=== PATIENT | male | born 1970 | race African-American/Black ===

== ENCOUNTER 2019-01-27 20:45 | Emergency (ER) | payer OTHER | END 2019-01-27 21:18 | disposition left against medical advice (07) | LOC: ERS 20:45 | DX: Z53.21 Procedure and treatment not carried out due to patient leaving prior to being seen by health care provider (principal) ==

== ENCOUNTER 2019-01-27 21:07 | Emergency (ER) | payer OTHER ==
[2019-01-27] MEDS ORDERED: Famotidine 20 MG TAB ONE (21:26)
[2019-01-27] MEDS ORDERED: diphenhydrAMINE 50 MG/ML VIAL ONE (21:27)
[2019-01-27] MEDS ORDERED: predniSONE 20 MG TAB ONE (21:27)
[2019-01-27] MEDS ORDERED: diphenhydrAMINE 25 MG CAP ONE (21:28)
[2019-01-27 21:49] LABS: INR-International Normal Ratio 1.1; Prothrombin Time 13.9 SEC (12.0-14.7)
[2019-01-27 21:59] LABS: ALT (SGPT) 35 U/L (8-55); AST (SGOT) 25 U/L (5-34); Albumin 3.7 g/dL (3.5-5.0); Alkaline Phosphatase 47 U/L (40-150); Anion Gap 11 mmol/L (10-20); BUN (Urea Nitrogen) 10 mg/dL (8.9-20.6); Bilirubin, Total 0.4 mg/dL (0.2-1.2); Calc. Creatinine Clearance 0 mL/min (70-130); Calcium 8.7 mg/dL (7.8-10.44); Carbon Dioxide 26 mmol/L (22-29); Chloride 105 mmol/L (98-107); Eosinophils 3 % (0-10); Estimated GFR-MDRD 88; Glucose 144 mg/dL (70-105); Hemoglobin 15.9 g/dL (14.0-18.0); Lymphocytes 21 % (21-51); MDiff Complete? YES; Mean Corpuscular HGB CONC 33.7 g/dL (32.0-36.0); Mean Corpuscular Hemoglobin 30.7 pg (27.0-31.0); Mean Platelet Volume 9.1 fL (7.4-10.4); Monocytes 6 % (0-10); Neutrophil 70 % (42-75); Platelet Count 207 thou/uL (130-400); Potassium 4.1 mmol/L (3.5-5.1); Protein, Total 6.7 g/dL (6.0-8.3); RBC Distribution Width 12.3 % (11.5-14.5); Red Blood Cell (RBC) Count 5.17 mill/uL (4.70-6.10); Sodium 138 mmol/L (136-145); White Blood Cell (WBC) Count 4.8 thou/uL (4.8-10.8)
== END 2019-01-27 22:22 | disposition home or self-care (01) ==
LOC: SCSER 21:07
DX: R21 Rash and other nonspecific skin eruption (principal)
CPT/HCPCS: 36415; 80053; 85025; 85610; 99283; J1200; J7512; Q0163

== ENCOUNTER 2019-01-30 22:56 | Emergency (ER) | payer OTHER ==
[2019-01-30] MEDS ORDERED: Famotidine 20 MG TAB ONE (23:22)
[2019-01-30] MEDS ORDERED: diphenhydrAMINE 25 MG CAP ONE (23:22)
[2019-01-31] MEDS ORDERED: Dexamethasone 10 MG/ML VIAL ONE (00:04)
[2019-01-31] MEDS ORDERED: Ketorolac Tromethamine 30 MG/ML VIAL ONE (00:05)
[2019-01-31 00:17] LABS: Eosinophils 5 % (0-10); Hemoglobin 16.1 g/dL (14.0-18.0); Lymphocytes 33 % (21-51); MDiff Complete? YES; Mean Corpuscular HGB CONC 33.5 g/dL (32.0-36.0); Mean Corpuscular Hemoglobin 30.7 pg (27.0-31.0); Mean Corpuscular Volume 91.6 fL (78.0-98.0); Mean Platelet Volume 8.8 fL (7.4-10.4); Monocytes 7 % (0-10); Neutrophil 52 % (42-75); Platelet Count 251 thou/uL (130-400); RBC Distribution Width 12.7 % (11.5-14.5); Reactive Lymphocytes 3 % (0-10); Red Blood Cell (RBC) Count 5.24 mill/uL (4.70-6.10); White Blood Cell (WBC) Count 6.6 thou/uL (4.8-10.8)
[2019-01-31 00:20] LABS: ALT (SGPT) 50 U/L (8-55); Albumin 3.9 g/dL (3.5-5.0); Alkaline Phosphatase 42 U/L (40-150); Anion Gap 15 mmol/L (10-20); BUN (Urea Nitrogen) 19 mg/dL (8.9-20.6); Bilirubin, Total 0.5 mg/dL (0.2-1.2); Calc. Creatinine Clearance 0 mL/min (70-130); Carbon Dioxide 28 mmol/L (22-29); Chloride 103 mmol/L (98-107); Estimated GFR-MDRD 65; Globulin 3.3 g/dL (2.4-3.5); Glucose 82 mg/dL (70-105); Potassium 4.7 mmol/L (3.5-5.1); Protein, Total 7.2 g/dL (6.0-8.3); Sodium 141 mmol/L (136-145)
[2019-01-31 00:23] LABS: AST (SGOT) 67 U/L (5-34)
== END 2019-01-31 01:27 | disposition home or self-care (01) ==
LOC: SCSER 22:56
DX: T78.40XA Allergy, unspecified, initial encounter (principal)
CPT/HCPCS: 80053; 85025; 96361; 96374; 96375; J1100; J1885; Q0163

== ENCOUNTER 2019-02-11 09:55 | Emergency (ER) | payer OTHER, SELFPAY ==
[2019-02-11 10:53] LABS: #Basophils 0.1 thou/uL (0.0-0.2); #Eosinphils 0.1 thou/uL (0.0-0.7); #Lymphocytes 2.3 thou/uL (1.20-3.40); #Monocytes 0.4 thou/uL (0.11-0.59); %Basophils 1.4 % (0.0-1.0); %Eosinophils 2.4 % (0.0-10.0); %Lymphocytes 38.9 % (21.0-51.0); %Monocytes 6.5 % (0.0-10.0); %Neutrophils 50.8 % (42.0-75.0); Hemoglobin 15.5 g/dL (14.0-18.0); Mean Corpuscular HGB CONC 32.6 g/dL (32.0-36.0); Mean Corpuscular Hemoglobin 30.1 pg (27.0-31.0); Mean Corpuscular Volume 92.6 fL (78.0-98.0); Platelet Count 238 thou/uL (130-400); RBC Distribution Width 13.2 % (11.5-14.5); Red Blood Cell (RBC) Count 5.16 mill/uL (4.70-6.10); White Blood Cell (WBC) Count 5.9 thou/uL (4.8-10.8)
[2019-02-11 10:58] LABS: Anion Gap 14 mmol/L (10-20); BUN (Urea Nitrogen) 18 mg/dL (8.9-20.6); Calc. Creatinine Clearance 0 mL/min (70-130); Carbon Dioxide 27 mmol/L (22-29); Chloride 101 mmol/L (98-107); Estimated GFR-MDRD 78; Glucose 100 mg/dL (70-105); Potassium 4.8 mmol/L (3.5-5.1); Sodium 137 mmol/L (136-145)
== END 2019-02-11 11:50 | disposition home or self-care (01) ==
LOC: SCSER 09:55
DX: M25.511 Pain in right shoulder (principal)
CPT/HCPCS: 80048; 85025; 99283